=== PATIENT | female | born 1985 | race Two or more races ===

== ENCOUNTER 2021-05-24 18:41 | Emergency (ER) | payer OTHER ==
[~2021-05-24] VITALS: Ht 154.9 cm; Wt 73.9 kg
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
--- NOTE | 2021-05-24 19:01 | NUR ---
PATIENT TAKEN TO CT
--- NOTE | 2021-05-24 19:09 | NUR ---
PATIENT RETURNED FROM CT
--- NOTE | 2021-05-24 19:32 | NUR ---
PER PATIENT, [employer] REPORT IS DONE.
[2021-05-24 20:02] VITALS: BP 120/71
--- NOTE | 2021-05-24 20:03 | NUR ---
Patient discharged to home in stable condition. Written and verbal after care instructions given. Patient verbalizes understanding of instruction.
== END 2021-05-24 20:03 | disposition home or self-care (01) ==
LOC: ER 18:47
DX: S06.0X0A Concussion without loss of consciousness, initial encounter (principal); Y04.0XXA Assault by unarmed brawl or fight, initial encounter; Y93.89 Activity, other specified; Y92.89 Other specified places as the place of occurrence of the external cause; Y99.8 Other external cause status
CPT/HCPCS: 70450-TC